=== PATIENT | female | born 1950 | race Caucasian/White ===

== ENCOUNTER → 2016-10-26 | Outpatient (CLI) | payer OTHER ==
--- NOTE | 2016-10-26 16:42 | MA ---
Screening Digital Mammogram, With iCAD Analysis Clinical Indications: Routine screening. The patient has had left breast cancer treated with lumpec jyothi. Technique: Standard cephalocaudal projections are obtained. Digital breast tomosynthesis was perform ed in the MLO projection, with reconstruction at 1.0-mm slice thickness and composite MLO views recon structed. A skin marker is placed on the lumpectomy scar in the outer posterior left breast. This e xamination is processed by the iCAD computer aided detection system. Comparison: September 2015, August 2014, July 2013, June 2012, June 2011, September 2007. Breast density: Type B; Scattered fibroglandular densities. Findings: CAD was reviewed. There is a possible developing nodular asymmetry in the central posteri or right breast. Architectural change at the lumpectomy site in the left breast is stable. Impression: Possible developing nodular asymmetry in the right breast requires further evaluation, B I-RADS 0. Recommendation: Spot compression assessment of the right breast, with ultrasound suggested if the ab normality persists on diagnostic evaluation. [facility] will send a result letter to the patient. The patient's information is entered into a reminder system with a target due date for her next mammo gram.
== END ==
LOC: FIMAGING 12:49
DX: Z12.31 Encounter for screening mammogram for malignant neoplasm of breast (principal); Z85.3 Personal history of malignant neoplasm of breast
CPT/HCPCS: G0202

== ENCOUNTER → 2016-11-07 | Outpatient (CLI) | payer OTHER ==
--- NOTE | 2016-11-07 11:05 | MA ---
Diagnostic Digital Mammogram Right Breast With iCAD Analysis Reason for examination: Evaluate possible developing asymmetry in the posterior central left breast i dentified on the screening mammographic study October 26, 2016. Technique: Oblique and craniocaudal spot compression views are obtained. Also, a true lateral is perf ormed. The examination is processed by the iCAD computer-aided detection system. Findings: A focal asymmetry persists in the upper posterior slightly outer right breast. Faint associ ated microcalcifications are seen. Impression: Persistent right breast asymmetry requires further evaluation, BI-RADS 0. Recommendation: Targeted right breast ultrasound which will be subsequently performed today. A verbal report was given to the patient. [facility] with send a result letter.
--- NOTE | 2016-11-07 16:08 | US ---
Right Breast Ultrasound History: Evaluate persistent asymmetry in the upper posterior right [facility] 2016 and further evaluated on diagnostic assessment performed kristofer ier today. Technique: Longitudinal and transverse images were obtained utilizing a 15 MHz transducer. Color Dop pler evaluation was employed for assessment of vascularity. Findings: No discrete palpable abnormality is identified on my physical examination, although the pat ient does experience focal pain when palpated over the 10 o'clock position. Careful sonographic evalu ation of the region demonstrates a subtle 5 x 3 mm hypoechoic structure, which is only well demonstra echo with harmonics. I believe this would be quite difficult to biopsy with sonographic guidance. Impression: Suspicious findings when considering mammographic and sonographic assessment, BI-RADS 4. Recommendation: Due to relatively better conspicuity on mammography, a stereotactic core biopsy is garcia ggested. If the stereotactic biopsy result is not concordant, then a targeted ultrasound biopsy could then be considered. I have reviewed this examination with Dr. Myles Carvajal, and he is in agreement with the interpre tation as well as recommendation for a stereotactic biopsy. Findings and biopsy recommendation were reviewed with the patient. Additionally, I contacted the offi ce of her healthcare provider, Dr. Cierra Emmanuel, and they will [facility] will send a result letter to the patient.
== END ==
LOC: FIMAGING 10:24
PROVIDERS: ATTEND Internal Medicine
DX: R92.8 Other abnormal and inconclusive findings on diagnostic imaging of breast (principal)
CPT/HCPCS: 76641; G0206

== ENCOUNTER → 2016-11-28 | Day surgery (SDC) | payer OTHER ==
[~2016-11-28] MED LIST: THROMBIN (RECOMBINANT) 5,000 UNIT VIAL TP ONE
== END | disposition home or self-care (01) ==
LOC: FIMAGING 08:43
PROVIDERS: ATTEND Internal Medicine
PROC: 0HBT3ZX Excision of Right Breast, Percutaneous Approach, Diagnostic (ICD-10-PCS; principal; 2016-11-28)
DX: C50.911 Malignant neoplasm of unspecified site of right female breast (principal); R92.0 Mammographic microcalcification found on diagnostic imaging of breast; N60.89 Other benign mammary dysplasias of unspecified breast
CPT/HCPCS: G0206

== ENCOUNTER → 2016-12-31 | Outpatient (CLI) | payer OTHER ==
[~2016-12-31] MED LIST changes: +GADOBUTROL 10 ML VIAL IVP ONE; -THROMBIN (RECOMBINANT) 5,000 UNIT VIAL TP ONE
== END ==
LOC: FIMAGING 09:54
PROVIDERS: ATTEND Surgery
DX: C50.911 Malignant neoplasm of unspecified site of right female breast (principal)
CPT/HCPCS: 0159T; A9585; C8908

== ENCOUNTER → 2017-01-09 | Day surgery (SDC) | payer OTHER | END | disposition home or self-care (01) | LOC: FIMAGING 07:29 | PROVIDERS: ATTEND Surgery | DX: C50.911 Malignant neoplasm of unspecified site of right female breast (principal); Z53.20 Procedure and treatment not carried out because of patient's decision for unspecified reasons ==

== ENCOUNTER 2017-01-24 06:19 | Day surgery (SDC) | payer OTHER ==
[2017-01-24] MEDS ORDERED: SODIUM BICARBONATE 10 MEQ/10 ML SYR IVP ONE (06:42)
[2017-01-24] MEDS ORDERED: LIDOCAINE 1% 30 ML SDV ONE (06:42)
[2017-01-24] MEDS ORDERED: BUPIVACAINE 0.5% 30 ML SDV ONE (06:42)
[2017-01-24] MEDS ORDERED: THROMBIN (BOVINE) 5,000 UNIT VIAL TP ONE ×2 (06:42→10:36)
[2017-01-24] MEDS ORDERED: LR 1,000 ML IV ONE (07:27)
[2017-01-24] MEDS ORDERED: ceFAZolin 2 GM/DEXTROSE 100 ML IV ONE (08:00)
[2017-01-24] MEDS ORDERED: MIDAZOLAM 2 MG/2 ML VIAL ONE (09:39)
[2017-01-24] MEDS ORDERED: PROPOFOL/EMULSION 500 MG/50 ML BOTTLE IV ONE (09:44)
[2017-01-24] MEDS ORDERED: fentaNYL 100 MCG/2 ML INJ ONE (09:44)
[2017-01-24] MEDS ORDERED: ONDANSETRON 4 MG/2 ML VIAL ONE (09:45)
[2017-01-24] MEDS ORDERED: DEXAMETHASONE 4 MG/ML VIAL ONE (09:45)
[2017-01-24] MEDS ORDERED: LIDOCAINE 2% 100 MG/5 ML SYR ONE (09:45)
[2017-01-24] MEDS ORDERED: LIDOCAINE 2% JELLY 5 ML TUBE ONE (09:45)
[2017-01-24] MEDS ORDERED: KETOROLAC 30 MG/1 ML SDV ONE (11:06)
--- NOTE | 2017-01-24 13:43 | GOP ---
[f rep st] OPERATIVE REPORT DATE OF OPERATION: 01/24/2017 SURGEON: Giovanni Paul MD [employer] OPERATOR: RODGER Chen ANESTHESIOLOGIST: Dr. Friedman. PREOPERATIVE DIAGNOSIS: Right breast cancer. POSTOPERATIVE DIAGNOSIS: Right breast cancer. PROCEDURE PERFORMED: Right needle localization biopsy with sentinel node biopsy and a superficial a xillary node dissection. FINDINGS: The patient was found to have a negative sentinel node. The target was contained within the specimen on x-ray. DESCRIPTION OF PROCEDURE: Patient was taken to the operating room, where she received satisfactory general endotracheal anesthesia by Dr. Friedman. Placed in a supine position with the right arm outstr etched on an arm board, prepped and draped in the usual sterile fashion. Using a gamma probe, senti karen node was identified in the base of the axilla. A short incision was made at the base of the axi lla and carried down through the axillary fascia, which was incised. A group of lymph nodes was bro ught up and dissected free. Hemostasis was obtained with hemoclips and electrocautery, and the grou p of hot lymph nodes was sent to Pathology and thought to be benign. Topical thrombin was placed in the area after hemostasis was obtained, and the wound was closed with 3-0 Vicryl for the subcutaneo us tissue and 4-0 Monocryl subcuticular stitch for the skin, and also infiltrated with 0.5% Marcaine . Attention was then turned to the needle localization in the upper outer quadrant of the right breast . A curvilinear incision was made and carried through the subcutaneous tissue and down along the ne edle track. The mass area was grasped with a David , then a circular wide incision was ma de around the area past the needle point. Hemostasis was assured. The specimen was removed and sent to x-ray and confirmed to contain the lesion in question. Hemostasis was fully obtained. Addition al margins were taken on the superior, inferior, and lateral margins. These were sent out separatel y. Hemostasis was assured. The breast tissue was approximated with 3-0 Vicryl. Subcu was closed w ith a running 3-0 Vicryl and the skin with a 4-0 Monocryl subcuticular stitch. Topical thrombin had been placed in the biopsy cavity as well, and was infiltrated with 0.5% Marcaine. She tolerated th e procedure quite well and was taken to the recovery room in good condition. There were no complica tions. /[id number]/MODL
== END 2017-01-24 12:55 | disposition home or self-care (01) ==
LOC: FSGY 06:19
PROVIDERS: ATTEND Surgery
PROC: 0HBT0ZZ Excision of Right Breast, Open Approach (ICD-10-PCS; principal; 2017-01-24 10:00)
PROC: 07B50ZX Excision of Right Axillary Lymphatic, Open Approach, Diagnostic (ICD-10-PCS; principal; 2017-01-24 10:00)
PROC: 0HHT31Z Insertion of Radioactive Element into Right Breast, Percutaneous Approach (ICD-10-PCS; 2017-01-24 10:00)
DX: C50.411 Malignant neoplasm of upper-outer quadrant of right female breast (principal); Z87.891 Personal history of nicotine dependence
CPT/HCPCS: 19125; 19281; 38500; 76098; 78195; A9520; J0690; J1100; J1885; J2001; J2250; J2405; J2704; J3010

== ENCOUNTER → 2017-03-20 | Outpatient (CLI) | payer OTHER | LOC: FIMAGING 07:00 | PROVIDERS: ATTEND Internal Medicine Gastroenterology | DX: K86.1 Other chronic pancreatitis (principal); K83.8 Other specified diseases of biliary tract; K86.89 Other specified diseases of pancreas; M51.36 Other intervertebral disc degeneration, lumbar region; M51.37 Other intervertebral disc degeneration, lumbosacral region ==

== ENCOUNTER → 2017-10-28 | Outpatient (CLI) | payer OTHER | LOC: FIMAGING 10:29 | PROVIDERS: ATTEND Internal Medicine Hematology & Oncology | DX: Z12.31 Encounter for screening mammogram for malignant neoplasm of breast (principal); Z85.3 Personal history of malignant neoplasm of breast ==

== ENCOUNTER → 2018-08-08 | Outpatient (CLI) | payer OTHER | LOC: FIMAGING 12:58 | PROVIDERS: ATTEND Physician Assistant | DX: M79.671 Pain in right foot (principal) ==

== ENCOUNTER → 2018-10-29 | Outpatient (CLI) | payer OTHER | LOC: FIMAGING 10:07 | PROVIDERS: ATTEND Internal Medicine Hematology & Oncology | DX: Z12.31 Encounter for screening mammogram for malignant neoplasm of breast (principal); Z85.3 Personal history of malignant neoplasm of breast ==

== ENCOUNTER → 2018-11-04 | Outpatient (CLI) | payer OTHER | LOC: FIMAGING 09:47 | PROVIDERS: ATTEND Internal Medicine Hematology & Oncology | DX: Z13.820 Encounter for screening for osteoporosis (principal); M85.89 Other specified disorders of bone density and structure, multiple sites; Z78.0 Asymptomatic menopausal state; Z85.3 Personal history of malignant neoplasm of breast ==